=== PATIENT | male | born 1965 | race Caucasian/White ===

== ENCOUNTER 2020-12-10 13:14 | Emergency (ER) | payer OTHER ==
[~2020-12-10] VITALS: Ht 172.7 cm; Wt 62.7 kg
[2020-12-10] MEDS ORDERED: penicillin V potassium 500mg tablet PO ONE (15:00)
[2020-12-10] MEDS ORDERED: CHLO473M3 PO (15:02)
[2020-12-10] MEDS ORDERED: PENI500T2 PO (15:02)
[2020-12-10 15:19] VITALS: BP 117/87
== END 2020-12-10 15:16 | disposition home or self-care (01) ==
LOC: ER 13:14
DX: K02.9 Dental caries, unspecified (principal); R51.9 Headache, unspecified; Z79.899 Other long term (current) drug therapy
CPT/HCPCS: 99283